=== PATIENT | female | born 1950 | race Caucasian/White ===

== ENCOUNTER → 2018-01-23 | Outpatient (CLI) | payer OTHER ==
[~2018-01-23] MED LIST: LISI-461 PO; PRAV20TA PO
[2018-01-23 14:00] LABS: BASO % 0.3 %; BASO ABS # 0.02 K/uL (0-0.2); EOS % 0.3 %; EOS ABS # 0.02 K/uL (0-0.5); HEMATOCRIT 40.3 % (37-47); HEMOGLOBIN 13.3 g/dL (12.0-16.0); IG# 0.01 K/uL (0.00-0.02); LYMPH % 25.9 %; LYMPH ABS # 1.74 K/uL (1.2-3.4); MEAN CELL VOLUME 89.6 fL (80-100); MEAN CORPUSCULAR HEMOGLOBIN 29.6 pg (25-34); MEAN PLATELET VOLUME 10.1 fL (7.4-10.4); MONO % 6.7 %; MONO ABS # 0.45 K/uL (0.11-0.59); NEUT % 66.7 %; NEUT ABS # 4.49 K/uL (1.4-6.5); PLATELET COUNT 202 K/uL (130-400); RED CELL DISTRIBUTION WIDTH CV 14.5 % (11.5-14.5); RED CELL DISTRIBUTION WIDTH SD 47.6 fL (36.4-46.3); WHITE BLOOD COUNT 6.73 K/uL (4.8-10.8)
--- NOTE | 2018-01-23 14:05 | DIAGNOSTIC IMAGING REPORT ---
CHEST 2 VIEWS ROUTINE CLINICAL HISTORY: 67 years-old Female presenting with preoperative assessment prior to total hip arthroplasty. TECHNIQUE: PA and lateral views of the chest were obtained. COMPARISON: None. FINDINGS: Cardiomediastinal silhouette normal. Lungs and pleural spaces clear. Degenerative changes of the thoracic spine. Cholecystectomy clips noted. IMPRESSION: 1. No acute cardiopulmonary disease. Electronically signed by: Holland Murray M.D. 01/23/2018 2:04 PM Dictated Date/Time: 01/23/2018 2:03 PM
[2018-01-23 14:14] LABS: HEMOGLOBIN A1C 5.7 % (4.5-5.6)
[2018-01-23 15:30] LABS: ALBUMIN 3.9 gm/dl (3.4-5.0); BLOOD UREA NITROGEN 17 mg/dl (7-18); CALCIUM 9.6 mg/dl (8.5-10.1); CARBON DIOXIDE 28 mmol/L (21-32); CREATININE 1.01 mg/dl (0.60-1.20); GLUCOSE 100 mg/dl (70-99); POTASSIUM 4.4 mmol/L (3.5-5.1); SODIUM 139 mmol/L (136-145)
== END | disposition home or self-care (01) ==
LOC: C.CPL 13:01
PROVIDERS: ATTEND Orthopaedic Surgery
DX: Z01.818 Encounter for other preprocedural examination (principal)

== ENCOUNTER 2018-10-18 12:24 | Observation (INO) ==
[2018-10-18] MEDS ORDERED: SODIUM CHLORIDE 0.9% 1000ML 1,000 ML IV ONE (13:03)
[2018-10-18 13:59] LABS: Basophils # (auto) 0.02 K/uL (0-0.2); Basophils % (auto) 0.2 %; Hematocrit (blood only) 40.2 % (37-47); Hemoglobin 13.3 g/dL (12.0-16.0); Immature Granulocytes # (auto) 0.02 K/uL (0.00-0.02); Immature Granulocytes % (auto) 0.2 %; Lymphocytes % (auto) 11.3 %; Mean Corpuscular Hgb Conc 33.1 g/dL (32-36); Mean Corpuscular Volume 88.9 fL (80-100); Mean Platelet Volume 10.1 fL (7.4-10.4); Monocytes # (auto) 0.52 K/uL (0.11-0.59); Monocytes % (auto) 5.3 %; Platelet Count 228 K/uL (130-400); RDW Coefficient of Variation 14.5 % (11.5-14.5); RDW Standard Deviation 47.3 fL (36.4-46.3); Red Blood Count 4.52 M/uL (4.2-5.4); White Blood Count 9.76 K/uL (4.8-10.8)
[2018-10-18 14:10] LABS: Albumin Level 3.5 gm/dl (3.4-5.0); BUN Creatinine Ratio 16.6 (10-20); Calcium 9.1 mg/dl (8.5-10.1); Creatinine Clr Calc Pharmacy 58.9 ml/min; Est GFR (African American) 61.5; Est GFR (Non-African American) 53.1; Potassium 3.8 mmol/L (3.5-5.1)
[2018-10-18 14:21] LABS: Albumin Globulin Ratio 1.1 (0.9-2); Bilirubin,Total 0.8 mg/dl (0.2-1); Globulin 3.2 gm/dl (2.5-4.0); Total Protein 6.7 gm/dl (6.4-8.2); Troponin I 0.028 ng/ml (0-0.045)
[2018-10-18 14:33] LABS: Appearance Urine Cloudy (Clear); Bacteria Urine Automated 2+ (Negative); Color Urine Dark Yellow; Epithelial Cell Urine Auto >30 /lpf (0-5); Glucose Urine UA Negative (Negative); Ketones Urine 2+ (Negative); Leukocyte Esterase Urine 1+ (Negative); Nitrite Urine Negative (Negative); Protein Urine 2+ (Negative); Specific Gravity Urine 1.027 (1.000-1.030); Urobilinogen Urine Negative (Negative)
[2018-10-18 14:41] LABS: Bilirubin Urine Negative (Negative); Ictotest Urine Negative (Negative)
[2018-10-18] MEDS ORDERED: cephALEXin 250 MG CAP PO ONE (15:00)
[2018-10-18] MEDS ORDERED: cephALEXin 500MG HOME PACK PO ONE (15:00)
[2018-10-18 15:04] LABS: Prothrombin Time 10.6 Seconds (9.0-12.0)
--- NOTE | 2018-10-18 15:10 | XRay Report ---
SINGLE VIEW CHEST CLINICAL HISTORY: Dizziness. FINDINGS: An AP, portable, upright chest radiograph is compared to study dated 01/23/2018. The examina tion is degraded by portable technique, apical lordotic positioning, and patient rotation. The cardi omediastinal silhouette is unremarkable. There is chronic elevation of the right hemidiaphragm with b ibasilar atelectasis. No airspace consolidation or large pleural effusion is identified. No pneumotho rax is seen. The skeletal structures are osteopenic. The bony thorax is grossly intact. Calcific tend inopathy is noted in the left shoulder. IMPRESSION: No active disease in the chest. Electronically signed by: William Davila M.D. 10/18/2018 3:09 PM
--- NOTE | 2018-10-18 15:30 | Emergency Department Note ---
Entered by Nieves Dowell acting as a scribe for History of Present Illness General Chief complaint: Syncope Time Seen by Provider: 10/18/18 12:42 Source: patient and family Mode of arrival: EMS Limitations: no limitations History of Present Illness Provider complaint: syncope Onset (ago): hour(s) ([employer]) Location: head Pain Consistency: + other (episode) Quality: + other (post-op) Associated symptoms: + denies other symptoms (palpitations, blurry or double vision), + nausea/vomiting and + other (hot, dizzy); no chest pain, no headaches and no seizure The patient is a 68 year old female who presents to the ER via EMS following an episode of syncope that occurred prior to arrival. The patient reports that earlier today she had an episode of dizziness and states she started seeing spots and felt warm and lightheaded. She notes that she then asked her daughter for a glass of water which she reports did alleviate her symptoms. She states that she then went to a doctors appointment and had a second episode, but that this time she did lose consciousness. The daughter notes that the episode lasted one minute and denies any seizure-like activities. She reports that the patient was given apple juice after the episode which she then vomited. She denies eating this morning. She states that she did recently have a left hip replacement and notes that she had a similar episode last February, following a right hip replacement. She denies any headaches, chest pain or palpitations but reports she did feel hot during these episodes. She states that she did not drink as much water as she normally does today and notes she did not eat breakfast. She denies any new or changes in medications. She also denies any blurry or double vision. Denies any history of heart problems, palpitations. No recent illness or fevers. Denies any change in bowel or bladder function. No preceding headaches or chest pain and no preceding palpitations prior to syncopal events. Home Medications Home Medications Medication Instructions Recorded Confirmed Type lisinopril 10 mg PO QAM #0 tab 01/16/18 10/18/18 History pravastatin 10 mg PO HS #0 tab 01/16/18 10/18/18 History cephalexin 500 mg PO BID 5 Days #10 cap 10/18/18 Rx Allergies Allergy/AdvReac Type Severity Reaction Status Date / Time nitrofurantoin Allergy Mild Gastrointestinal Verified 10/18/18 13:17 Upset Sulfa (Sulfonamide Allergy Mild Rash Verified 10/18/18 13:17 Antibiotics) Past Med/Surg History Medical History Hyperlipemia Hypertension Obesity Osteoarthritis Renal cyst Stage 2 chronic kidney disease Surgical History History of bilateral tubal ligation History of total hip arthroplasty RT Hx laparoscopic cholecystectomy Family History Father Family history of diabetes mellitus Social History Preferred Language: Yoruba Communication Ability: Effective 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 and A total of 10 systems reviewed and were otherwise negative Physical Exam Vital Signs Vital Signs - 24 hr 10/18/18 16:39 10/18/18 18:34 10/18/18 19:45 Temperature Temperature Source Pulse Rate Pulse Rate [Apical] 67 64 60 Pulse Rate [Finger] Respiratory Rate 18 18 18 Respiratory Effort / Characteristics Respiratory Depth Respiratory Pattern Blood Pressure [Right Arm] 155/81 H 150/73 H 145/75 H Blood Pressure Mean [Right Arm] 105 98 98 Blood Pressure Position [Right Arm] Pulse Oximetry 96 97 97 Oxygen Delivery Method Room Air Room Air Room Air 10/18/18 20:00 10/18/18 23:31 10/19/18 02:54 Temperature 36.9 C 36.8 C 36.7 C Temperature Source Oral Oral Oral Pulse Rate Pulse Rate [Apical] 58 L Pulse Rate [Finger] 60 59 L Respiratory Rate 20 18 19 Respiratory Effort / Characteristics Non-Labored Respiratory Depth Normal Respiratory Pattern Regular Blood Pressure [Right Arm] 164/85 H 152/69 H 154/73 H Blood Pressure Mean [Right Arm] 111 96 100 Blood Pressure Position [Right Arm] Lying Lying Pulse Oximetry 96 98 95 Oxygen Delivery Method Room Air Room Air Room Air 10/19/18 07:28 10/19/18 08:00 10/19/18 11:23 Temperature 36.8 C 37 C Temperature Source Oral Oral Pulse Rate 53 L Pulse Rate [Apical] Pulse Rate [Finger] 61 81 Respiratory Rate 16 20 Respiratory Effort / Characteristics Respiratory Depth Respiratory Pattern Blood Pressure [Right Arm] 145/78 H 131/82 Blood Pressure Mean [Right Arm] 100 98 Blood Pressure Position [Right Arm] Sitting Lying Pulse Oximetry 98 94 Oxygen Delivery Method Room Air Room Air 10/19/18 14:52 Temperature Temperature Source Pulse Rate 59 L Pulse Rate [Apical] Pulse Rate [Finger] Respiratory Rate Respiratory Effort / Characteristics Respiratory Depth Respiratory Pattern Blood Pressure [Right Arm] Blood Pressure Mean [Right Arm] Blood Pressure Position [Right Arm] Pulse Oximetry Oxygen Delivery Method GENERAL: alert, well appearing, well nourished, no distress, non-toxic EYE EXAM: normal conjunctiva, PERRL and EOM's grossly intact OROPHARYNX: no exudate, no erythema, lips, buccal mucosa, and tongue normal and mucous membranes are moist NECK: supple, no nuchal rigidity, no adenopathy, non-tender LUNGS: Clear to auscultation. Normal chest wall mechanics HEART: no murmurs, S1 normal and S2 normal ABDOMEN: abdomen soft, non-tender, normo-active bowel sounds, no masses, no re bound or guarding. BACK: Back is symmetrical on inspection and there is no deformity, no midline tenderness, no CVA tenderness. SKIN: no rashes and no bruising UPPER EXTREMITIES: upper extremities are grossly normal. FROM, nml pulses b/l. LOWER EXTREMITIES: No pitting edema. FROM, nml pulses b/l. NEURO EXAM: Normal sensorium, cranial nerves II-XII grossly intact, normal speech, no gross weakness of arms, no gross weakness of legs. Course 1256: Past medical records reviewed. The patient was evaluated in room C2B. A complete history and physical examination was performed. 1426: The patient is feeling better. She was able to walk to the bathroom with no recurrent symptoms. 1445: Bedside discussion regarding urinary tract infection. Patient states she has previously had them and notes her allergies include to antibiotics. No prior cultures and review of EMR to compare to. 1620: Patient updated on repeat troponin which is now elevated. Patient agreement with plan for additional inpatient evaluation and management. Administered Medications Aspirin (Ecotrin Ectab) 81 mg PO QAM [facility] Stop: 11/18/18 08:59 Last Admin: 10/19/18 07:46 Dose: 81 mg Documented by: [id number] Atorvastatin Calcium (Lipitor) 20 mg PO [facility] Stop: 11/17/18 20:16 Last Admin: 10/19/18 07:46 Dose: 20 mg Documented by: [id number] Admin: 10/18/18 20:53 Dose: 20 mg Documented by: [id number] Potassium Chloride/Sodium Chloride (Normal Saline W/20 Meq Kcl) 20 meq in 1,000 mls @ 80 mls/hr IV .[id number] [facility] Stop: 10/19/18 21:44 Last Admin: 10/19/18 07:45 Dose: 80 mls/hr Documented by: [id number] Infusion: 10/19/18 07:45 Dose: 80 mls/hr Documented by: [id number] Admin: 10/18/18 20:30 Dose: 80 mls/hr Documented by: [id number] Lisinopril (Zestril) 10 mg PO [facility] Stop: 11/18/18 08:59 Last Admin: 10/19/18 07:46 Dose: 10 mg Documented by: [id number] Discontinued Medications Aspirin (Ecotrin) 325 mg PO NOW STA Stop: 10/18/18 16:25 Last Admin: 10/18/18 16:38 Dose: Not Given Documented by: [id number] Aspirin (Aspirin) Confirm Administered Dose 324 mg .ROUTE .STK-MED ONE Stop: 10/18/18 16:29 Last Admin: 10/18/18 16:31 Dose: Not Given Documented by: [id number] Aspirin (Aspirin) 324 mg PO NOW STA Stop: 10/18/18 16:29 Last Admin: 10/18/18 16:30 Dose: 324 mg Documented by: [id number] Cephalexin HCl (Keflex 500mg Homepack) 1 homepack PO NOW ONE Stop: 10/18/18 15:01 Last Admin: 10/18/18 16:38 Dose: Not Given Documented by: [id number] Cephalexin HCl (Keflex) 500 mg PO NOW ONE Stop: 10/18/18 15:01 Last Admin: 10/18/18 16:30 Dose: 500 mg Documented by: [id number] Sodium Chloride (Nss 1000ml) 1,000 mls @ 999 mls/hr IV .Q1H1M ONE Stop: 10/18/18 14:03 Last Infusion: 10/18/18 14:23 Dose: 0 mls/hr Documented by: [id number] Admin: 10/18/18 13:30 Dose: 999 mls/hr Documented by: [id number] Medical Decision Making Differential Diagnosis Differential diagnosis includes: vasovagal event, infection, hypoglycemia, electrolyte abnormalities, cardiac sources, intracerebral event, toxicologic, neurologic, as well as others were entertained. Medical Records Attestation: I reviewed the patient's medical records. Home Medications Current Medication List: was personally reviewed by wv Laboratory Data Attestation: I reviewed the patient's lab results. Result diagrams: 10/18/18 13:32 10/18/18 13:32 Lab Results 10/18/18 10/18/18 10/18/18 Range/Units 13:32 13:32 13:35 WBC 9.76 (4.8-10.8) K/uL RBC 4.52 (4.2-5.4) M/uL Hgb 13.3 (12.0-16.0) g/dL Hct 40.2 (37-47) % MCV 88.9 (80-100) fL MCH 29.4 (25-34) pg MCHC 33.1 (32-36) g/dL RDW Std Deviation 47.3 H (36.4-46.3) fL RDW Coeff of Tal 14.5 (11.5-14.5) % Plt Count 228 (130-400) K/uL MPV 10.1 (7.4-10.4) fL Immature Gran % (Auto) 0.2 % Neut % (Auto) 83.0 % Lymph % (Auto) 11.3 % [place] % (Auto) 5.3 % Eos % (Auto) 0.0 % Baso % (Auto) 0.2 % Immature Gran # (Auto) 0.02 (0.00-0.02) K/uL Neut # (Auto) 8.10 H (1.4-6.5) K/uL Lymph # (Auto) 1.10 L (1.2-3.4) K/uL Greenlee # (Auto) 0.52 (0.11-0.59) K/uL Eos # (Auto) 0.00 (0-0.5) K/uL Baso # (Auto) 0.02 (0-0.2) K/uL PT 10.6 (9.0-12.0) Seconds INR 1.0 (0.9-1.1) Sodium 140 (136-145) mmol/L Potassium 3.8 (3.5-5.1) mmol/L Chloride 108 H (98-107) mmol/L Carbon Dioxide 26 (21-32) mmol/L Anion Gap 6.0 (3-11) BUN 18 (7-18) mg/dl Creatinine 1.08 (0.6-1.2) mg/dl Est Cr Clr Drug Dosing 58.9 ml/min Est GFR ( Amer) 61.5 Est GFR (Non-Af Amer) 53.1 BUN/Creatinine Ratio 16.6 (10-20) Glucose 142 H (70-99) mg/dl Calcium 9.1 (8.5-10.1) mg/dl Magnesium 2.0 (1.8-2.4) mg/dl Total Bilirubin 0.8 (0.2-1) mg/dl AST 12 L (15-37) U/L ALT 14 (12-78) U/L Alkaline Phosphatase 82 (45-117) U/L Troponin I 0.028 (0-0.045) ng/ml NT-Pro-B Natriuret Pep 194 (0-900) pg/ml Total Protein 6.7 (6.4-8.2) gm/dl Albumin 3.5 (3.4-5.0) gm/dl Globulin 3.2 (2.5-4.0) gm/dl Albumin/Globulin Ratio 1.1 (0.9-2) Lipase 95 (73-393) U/L TSH 2.590 (0.300-4.500) uIu/ml Urine Color Urine Appearance (Clear) Urine pH (4.5-7.5) Ur Specific [place] (1.000-1.030) Urine Protein (Negative) Urine Glucose (UA) (Negative) Urine Ketones (Negative) Urine Blood (Negative) Urine Nitrite (Negative) Urine Bilirubin (Negative) Urine Urobilinogen (Negative) Ur Leukocyte Esterase (Negative) Urine WBC (Auto) (0-5) /hpf Urine RBC (Auto) (0-4) /hpf U Hyaline Cast (Auto) (0-5) /lpf U Epithel Cells (Auto) (0-5) /lpf Urine Bacteria (Auto) (Negative) Blood Type Antibody Screen 10/18/18 10/18/18 10/18/18 Range/Units 14:15 15:21 15:21 WBC (4.8-10.8) K/uL RBC (4.2-5.4) M/uL Hgb (12.0-16.0) g/dL Hct (37-47) % MCV (80-100) fL MCH (25-34) pg MCHC (32-36) g/dL RDW Std Deviation (36.4-46.3) fL RDW Coeff of Tal (11.5-14.5) % Plt Count (130-400) K/uL MPV (7.4-10.4) fL Immature Gran % (Auto) % Neut % (Auto) % Lymph % (Auto) % [place] % (Auto) % Eos % (Auto) % Baso % (Auto) % Immature Gran # (Auto) (0.00-0.02) K/uL Neut # (Auto) (1.4-6.5) K/uL Lymph # (Auto) (1.2-3.4) K/uL [place]lee # (Auto) (0.11-0.59) K/uL Eos # (Auto) (0-0.5) K/uL Baso # (Auto) (0-0.2) K/uL PT (9.0-12.0) Seconds INR (0.9-1.1) Sodium (136-145) mmol/L Potassium (3.5-5.1) mmol/L Chloride (98-107) mmol/L Carbon Dioxide (21-32) mmol/L Anion Gap (3-11) BUN (7-18) mg/dl Creatinine (0.6-1.2) mg/dl Est Cr Clr Drug Dosing ml/min Est GFR ( Amer) Est GFR (Non-Af Amer) BUN/Creatinine Ratio (10-20) Glucose (70-99) mg/dl Calcium (8.5-10.1) mg/dl Magnesium (1.8-2.4) mg/dl Total Bilirubin (0.2-1) mg/dl AST (15-37) U/L ALT (12-78) U/L Alkaline Phosphatase (45-117) U/L Troponin I 0.059 H* (0-0.045) ng/ml NT-Pro-B Natriuret Pep (0-900) pg/ml Total Protein (6.4-8.2) gm/dl Albumin (3.4-5.0) gm/dl Globulin (2.5-4.0) gm/dl Albumin/Globulin Ratio (0.9-2) Lipase (73-393) U/L TSH (0.300-4.500) uIu/ml Urine Color Dark Yellow Urine Appearance Cloudy A (Clear) Urine pH 5.0 (4.5-7.5) Ur Specific [place] 1.027 (1.000-1.030) Urine Protein 2+ H (Negative) Urine Glucose (UA) Negative (Negative) Urine Ketones 2+ H (Negative) Urine Blood Negative (Negative) Urine Nitrite Negative (Negative) Urine Bilirubin Negative (Negative) Urine Urobilinogen Negative (Negative) Ur Leukocyte Esterase 1+ H (Negative) Urine WBC (Auto) 10-30 H (0-5) /hpf Urine RBC (Auto) 5-10 H (0-4) /hpf U Hyaline Cast (Auto) 10-30 H (0-5) /lpf U Epithel Cells (Auto) >30 H (0-5) /lpf Urine Bacteria (Auto) 2+ H (Negative) Blood Type AB Positive Antibody Screen NEGATIVE 10/18/18 10/19/18 Range/Units 22:55 05:45 WBC (4.8-10.8) K/uL RBC (4.2-5.4) M/uL Hgb (12.0-16.0) g/dL Hct (37-47) % MCV (80-100) fL MCH (25-34) pg MCHC (32-36) g/dL RDW Std Deviation (36.4-46.3) fL RDW Coeff of Tal (11.5-14.5) % Plt Count (130-400) K/uL MPV (7.4-10.4) fL Immature Gran % (Auto) % Neut % (Auto) % Lymph % (Auto) % [place] % (Auto) % Eos % (Auto) % Baso % (Auto) % Immature Gran # (Auto) (0.00-0.02) K/uL Neut # (Auto) (1.4-6.5) K/uL Lymph # (Auto) (1.2-3.4) K/uL [place] # (Auto) (0.11-0.59) K/uL Eos # (Auto) (0-0.5) K/uL Baso # (Auto) (0-0.2) K/uL PT (9.0-12.0) Seconds INR (0.9-1.1) Sodium (136-145) mmol/L Potassium (3.5-5.1) mmol/L Chloride (98-107) mmol/L Carbon Dioxide (21-32) mmol/L Anion Gap (3-11) BUN (7-18) mg/dl Creatinine (0.6-1.2) mg/dl Est Cr Clr Drug Dosing ml/min Est GFR ( Amer) Est GFR (Non-Af Amer) BUN/Creatinine Ratio (10-20) Glucose (70-99) mg/dl Calcium (8.5-10.1) mg/dl Magnesium (1.8-2.4) mg/dl Total Bilirubin (0.2-1) mg/dl AST (15-37) U/L ALT (12-78) U/L Alkaline Phosphatase (45-117) U/L Troponin I 0.106 H* 0.103 H* (0-0.045) ng/ml NT-Pro-B Natriuret Pep (0-900) pg/ml Total Protein (6.4-8.2) gm/dl Albumin (3.4-5.0) gm/dl Globulin (2.5-4.0) gm/dl Albumin/Globulin Ratio (0.9-2) Lipase (73-393) U/L TSH (0.300-4.500) uIu/ml Urine Color Urine Appearance (Clear) Urine pH (4.5-7.5) Ur Specific [place] (1.000-1.030) Urine Protein (Negative) Urine Glucose (UA) (Negative) Urine Ketones (Negative) Urine Blood (Negative) Urine Nitrite (Negative) Urine Bilirubin (Negative) Urine Urobilinogen (Negative) Ur Leukocyte Esterase (Negative) Urine WBC (Auto) (0-5) /hpf Urine RBC (Auto) (0-4) /hpf U Hyaline Cast (Auto) (0-5) /lpf U Epithel Cells (Auto) (0-5) /lpf Urine Bacteria (Auto) (Negative) Blood Type Antibody Screen Imaging Data Radiologist's Impression: Radiology results as stated below per my review and th e radiologist's interpretation: SINGLE VIEW CHEST CLINICAL HISTORY: Dizziness. FINDINGS: An AP, portable, upright chest radiograph is compared to study dated 01/23/2018. The examination is degraded by portable technique, apical lordotic positioning, and patient rotation. The cardiomediastinal silhouette is unremarkable. There is chronic elevation of the right hemidiaphragm with bibasilar atelectasis. No airspace consolidation or large pleural effusion is identified. No pneumothorax is seen. The skeletal structures are osteopenic. The bony thorax is grossly intact. Calcific tendinopathy is noted in the left shoulder. IMPRESSION: No active disease in the chest. Electronically signed by: William Davila M.D. 10/18/2018 3:09 PM ECG Data Attestation: I personally reviewed and interpreted this ECG as follows: Indication: syncope Rate (beats per minute): 58 Rhythm: sinus bradycardia Findings: + other (normal axis, normal intervals); no acute ischemic change and no ectopy Blood Pressure Blood Pressure Findings: Normal blood pressure Blood Pressure Disposition: did not require urgent referral MDM Narrative Heart score 4 Patient well-appearing here in initial description more consistent with orthostatic hypotension and subsequent syncope. Patient improved by arrival. Patient was hydrated labs checked as a precaution given patient's age and comorbid conditions. Patient tolerating p.o. here and remarked that she felt improved. Patient described not having anything to eat or drink this morning, a s she had not had any food because she was headed for preop blood work, but also forgot to drink any fluids. Patient and related to the bathroom without any difficulty. Patient low risk Wells, and I do not suspect PE. I did discuss with patient recheck of a secondary troponin due to her moderate risk heart score. Second troponin found to be elevated. Patient had no recurrent symptoms while here and was hemodynamically stable. I do not suspect bacteremia/sepsis or pyelonephritis. UA suboptimal, however given age and abnormal urinalysis, I did discuss with her treatment for UTI which she has had previously. No evidence of concurrent renal dysfunction. I do not suspect occult vascular etiology. Case discussed with hospitalist for additional inpatient evaluation and treatment. Impression & Plan Syncope, Dehydration, Orthostatic dizziness, Acute UTI Discharge Plan Visit Data *Final* Discharge Date/Time: 10/18/18 19:44 Chief Complaint: Syncope ED Provider: Mireille Housotn Discharge Problem: Syncope, Dehydration, Orthostatic dizziness, Acute UTI Patient Disposition: Home - Self-Care Condition: Good Discharge Instructions Interventions: ED Discharge Assessment Last Done: 10/18/18 19:44 Discharge Problem: Syncope Qualifiers: Syncope type: unspecified Qualified Code(s): R55 - Syncope and collapse The scribe's documentation has been prepared under my direction and personally reviewed by me in its entirety. I confirm that the note above accurately reflects all work, treatment, procedures, and medical decision making performed by me.
[2018-10-18] MEDS ORDERED: ASPIRIN 325 MG ECTAB PO STA (16:24)
[2018-10-18] MEDS ORDERED: ASPIRIN CHEW 324 MG ONE (16:28)
[2018-10-18] MEDS ORDERED: ASPIRIN CHEW 324 MG PO STA (16:28)
--- NOTE | 2018-10-18 17:47 | History & Physical Report ---
Date of Service October 18, 2018 Assessment & Plan (1) Syncope: 68 y/o F Hx HTN, HLD, CKD II, osteoarthritis. She was at her orthopedist for a pre-op eval for a planned L hip replacement. While in the office, she had 3 separate episodes of syncope or near-syncope. She claimed she could hear what was going on but was not responsive. These lasted 1-2 min. She was directed to the ER therefore. She did not have any CP, SOB, N/V or diaphoresis. Initial labs in the ER were notable for an elevated troponin. Her EKG did not support acute ischemia. 1) 3 syncopal episodes with a troponin elevation - an arrhythmia could tie in the diagnosis. We will treat for an NSTEMI with ASA, a statin and full-dose anticoagulation. She is scheduled for an echo and cardiology evaluation. She will remain on monitor overnight. 2) HTN - cont Lisinopril 3) HLD - statin dose increased 4) CKD - creat at baseline Full code - Lovenox prophylaxis Total time for this admit including review of labs, meds, imaging, records - discussion with pt and ER attending - 37 min Present on Admission?: Yes History of Present Illness Chief Complaint: Syncope and trop elevation Primary Care Provider: BUTCH JENNINGS 68 y/o F Hx HTN, HLD, CKD II, osteoarthritis. She was at her orthopedist for a pre-op eval for a planned L hip replacement. While in the office, she had 3 separate episodes of syncope or near-syncope. She claimed she could hear what was going on but was not responsive. These lasted 1-2 min. She was directed to the ER therefore. She did not have any CP, SOB, N/V or diaphoresis. Intial labs in the ER were notable for an elevated troponin. Her EKG did not support acute ischemia. PMH: 1) HTN 2) HLD 3) CKD II 4) Renal cyst 5) Osteoarthritis 6) Obese Surgical: 1) Right total hip 02/2018 Social: No history of smoking or drinking Family: Father - DM, ESRD Mother - breast CA, cirrhosis Allergies Allergy/AdvReac Type Severity Reaction Status Date / Time nitrofurantoin Allergy Mild Gastrointestinal Verified 10/18/18 13:17 Upset Sulfa (Sulfonamide Allergy Mild Rash Verified 10/18/18 13:17 Antibiotics) Home Medications Home Medications Medication Instructions Recorded Confirmed Type lisinopril 10 mg PO QAM #0 tab 01/16/18 10/18/18 History pravastatin 10 mg PO HS #0 tab 01/16/18 10/18/18 History cephalexin 500 mg PO BID 5 Days #10 cap 10/18/18 Rx Past Med/Surg History Medical History Hyperlipemia Hypertension Obesity Osteoarthritis Renal cyst Stage 2 chronic kidney disease Surgical History History of bilateral tubal ligation History of total hip arthroplasty RT Hx laparoscopic cholecystectomy Family History Father Family history of diabetes mellitus Social History Preferred Language: Occitan Communication Ability: Effective Beliefs That Will Affect Care: None Current Living Situation: Alone Feels Safe at Home: Yes Smoking Status: Former smoker Second Hand Exposure: No Hx Alcohol Use: No Hx Substance Use: No Review of Systems Review of Systems: Gen: Denies fevers, night sweats, rigors, fatigue, malaise, weight loss/gain ENT: Denies congestion, throat pain, hearing loss Eyes: Denies acute visual changes CV: Denies CP, palpitations Pulmonary: Denies SOB, cough, wheezing GI: Denies N/V, diarrhea, constipation Neuro: 3 episodes of syncope or near syncope as per HPI Musculoskeletal: Denies joint pain, inflammation Endocrine: Denies polydipsia, polyuria Skin: Denies acute rashes or ulcers Physical Exam Physical Exam: General: Pleasant, elderly F, AAO x 3, no distress ENT: No erythema or exudates, no thrush Eyes: GEOFFREY, EOMI Head and neck: Normocephalic, atraumatic, No JVD, neck is supple. Chest/heart: Nontender, S1,2, RRR, no murmurs, no gallops Lungs: CTAB, no wheezing or crackles Abdomen: Nontender, nondistended, BS+ Neuro: AAO x 3, speech is clear, no unilateral weakness or loss of sensation, coordination intact Musculoskeletal: No joint inflammation, muscle tenderness, FROM Skin: No acute rashes or ulcers Extremities: No clubbing, cyanosis, edema Results & Data Vital Signs (Past 12 Hours) Vital Signs Temp Pulse Pulse Resp BP BP Pulse Ox 10/18/18 16:39 67 18 155/81 H 96 10/18/18 15:00 69 18 149/86 H 99 10/18/18 14:15 65 15 157/63 H 97 10/18/18 14:10 82 15 10/18/18 14:00 59 L 16 96 10/18/18 13:50 61 19 97 10/18/18 13:40 61 13 98 10/18/18 13:30 71 17 97 10/18/18 13:20 60 15 96 10/18/18 13:10 61 12 94 10/18/18 13:00 62 18 92 10/18/18 12:50 63 19 10/18/18 12:40 59 L 15 10/18/18 12:36 62 26 H 10/18/18 12:35 98.1 F 61 18 115/57 L 94 10/18/18 12:31 61 20 115/57 L Diagnostic Findings EKG: sinus bradycardia CXR: clear (1) Syncope Syncope type: unspecified Qualified Code(s): R55 - Syncope and collapse
[2018-10-18] MEDS ORDERED: NITROGLYCERIN SL 0.4 MG/TAB TAB SL PRN (20:17)
[2018-10-18] MEDS ORDERED: ACETAMINOPHEN 325 MG TAB PO PRN (20:17)
[2018-10-18] MEDS ORDERED: ZOLPIDEM TARTRATE 5 MG TAB PO PRN (20:17)
[2018-10-18] MEDS ORDERED: MAGNESIUM HYDROXIDE SUSP 30 ML UDC PO PRN (20:17)
[2018-10-18] MEDS ORDERED: ALUMINUM/MAGNESIUM SUSP 30 ML UDC PO PRN (20:17)
[2018-10-18] MEDS ORDERED: POLYETHYLENE (MIRALAX) 17 GM PACK PO PRN (20:17)
[2018-10-18] MEDS ORDERED: ONDANSETRON INJ 2 MG/ML 2 ML VIAL IV PRN (20:17)
[2018-10-18] MEDS: NSS + 20MEQ KCL 20 MEQ/1,000 ML BAG IV SCH (20:30)
[2018-10-18] MEDS: ATORVASTATIN 20 MG TAB PO SCH (20:53)
[2018-10-19] MEDS: NSS + 20MEQ KCL 20 MEQ/1,000 ML BAG IV SCH (07:45)
[2018-10-19] MEDS: LISINOPRIL 10 MG TAB PO SCH (07:46)
[2018-10-19] MEDS: ATORVASTATIN 20 MG TAB PO SCH (07:46)
[2018-10-19] MEDS: ASPIRIN 81 MG ECTAB PO SCH (07:46)
--- NOTE | 2018-10-19 15:07 | Hospitalist Progress Note ---
Date of Service October 19, 2018 Assessment & Plan (1) Syncope: 68 y/o F Hx HTN, HLD, CKD II, osteoarthritis admitted yesterday on October 18, 2018 because of near syncope pt was was at her orthopedist for a pre-op eval for a planned L hip replacement. While in the office, she had 3 separate episodes of syncope or near-syncope. deneis any CP, SOB, N/V or diaphoresis. 3 syncopal episodes with a troponin elevation need to rule out an arrhythmia treat for an NSTEMI with ASA, a statin and full-dose anticoagulation. ordered echo and cardiology consult, follow final results Possible UTI, patient is asymptomatic, will follow-up results HTN: cont Lisinopril HLD: statin dose increased CKD: creat at baseline Full code - Lovenox prophylaxis Discussed with patient and daughter in bedside about condition and Answered All Questions Subjective Doing well, no new syncope, denies chest pain, Review of Systems Review of Systems: General Appearance: WD/WN, no apparent distress, Eyes: normal inspection, PERRL, EOMI, sclerae normal ENT: normal ENT inspection, hearing grossly normal, pharynx normal Neck: supple, no adenopathy, thyroid normal, no JVD, no carotid bruits, trachea midline Respiratory/Chest: chest non-tender, normal breath sounds, no respiratory distress, Cardiovascular: regular rate, rhythm, no JVD, no murmur Abdomen: normal bowel sounds, non tender, soft, no organomegaly, Extremities: normal range of motion, non-tender, normal inspection, no pedal edema, no calf tenderness, joint has no limited range of motion, capillary refill is normal, no cyanosis clubbing Neurologic/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 Chest/heart: Nontender, S1,2, RRR, no murmurs, no gallops Lungs: CTABil, no wheezing or crackles Abdomen: Nontender, nondistended, BS+ Neuro: AAO x 3, speech is clear, no unilateral weakness or loss of sensation, coordination intact Musculoskeletal: No joint inflammation, muscle tenderness, FROM Skin: No acute rashes or ulcers Extremities: No clubbing, cyanosis, edema Results & Data Vital Signs (Past 12 Hours) Vital Signs Temp Pulse Pulse Resp BP Pulse Ox 10/19/18 14:52 59 L 10/19/18 11:23 37 C 81 20 131/82 94 10/19/18 08:00 53 L 10/19/18 07:28 36.8 C 61 16 145/78 H 98 Laboratory Results - last 24 hr 10/18/18 10/18/18 10/18/18 15:21 15:21 22:55 Troponin I 0.059 H* 0.106 H* Blood Type AB Positive Antibody Screen NEGATIVE 10/19/18 05:45 Troponin I 0.103 H* Blood Type Antibody Screen Microbiology 10/18/18 14:15 Urine,Straight Cath Urine Culture - Preliminary Pin-point growth present, reincubating. (1) Syncope Syncope type: unspecified Qualified Code(s): R55 - Syncope and collapse
[2018-10-19] MEDS ORDERED: DOBUTamine HCL 12.5 MG/ML 20 ML VIAL IV ONE (16:25)
[2018-10-19] MEDS ORDERED: ATROPINE SULFATE 0.1 MG/ML 10ML SYR IV ONE (16:25)
[2018-10-19] MEDS ORDERED: METOPROLOL TARTRATE 1 MG/ML VIAL IV ONE (16:25)
--- NOTE | 2018-10-19 16:35 | Cardiology Consultation ---
Date of Consultation October 19, 2018 Assessment & Plan (1) Syncope: 2. Elevated troponin 3. Hypertension 4. Dyslipidemia 5. Sinus bradycardia Patient admitted after 3 episodes of syncope without precipitating chest pain, palpitations or shortness of breath. Brief prodromal symptoms of feeling warm, nauseated. EKG on presentation unremarkable but found to have mild troponin rise to 0.106. Echo with structurally normal heart and telemetry has been unremarkable except for sinus bradycardia to the 40s while sleeping. At this point suspect symptoms secondary to some mix of dehydration with decreased p.o. intake versus vasovagal. From a cardiac standpoint arrhythmia remains on the differential. Symptoms did occur with exertion and feel further ischemic work-up indicated. Would represent a low risk ACS presentation and will proceed with stress test for risk stratification. We will obtain dobutamine stress echocardiogram today. If study negative could discontinue heparin infusion and discharge home later today/tomorrow Would recommend additional ambulatory monitoring as an outpatient Would add aspirin to patient's outpatient regimen and follow-up with PCP for further modifiable ASCVD risk factor reduction. History of Present Illness Attending Physician: Baldo Beaulieu MD, PhD, [facility] History of Present Illness Mrs. Poe is a very pleasant 68-year-old woman with a history of hypertension, dyslipidemia mild chronic renal insufficiency and osteoarthritis admitted in the setting of syncope. Patient was in her usual state of health yesterday and was undergoing an x-ray for planned hip replacement when while walking back to the x-ray room felt hot and started to see spots. Was able to make it to a chair where reportedly lost consciousness a total of 3 times. Patient denies any precipitating chest pain, palpitations, shortness of breath. Denies any recent illness. States did not drink much in the morning prior to episode due to prolonged travel to get here. She reports one episode of syncope 9 months ago which occurred soon after hip replacement surgery of her other hip. At baseline functional capacity limited due to joint pain but with walking around her home denies any exertional symptoms. No prior cardiac history. Has never had a stress test. In the ED was feeling back to baseline. Blood pressure stable. On telemetry bradycardic overnight while sleeping to the low 40s. No other significant arrhythmia. EKG sinus rhythm with no ST abnormalities or abnormal intervals. Initial troponin negative and subsequently trended up to a peak of 0.106 yesterday evening. Family history: Father had bypass surgeries in his late 60s/early 70s Social history: No prior tobacco use. No alcohol use. . Allergies Allergy/AdvReac Type Severity Reaction Status Date / Time nitrofurantoin Allergy Mild Gastrointestinal Verified 10/18/18 13:17 Upset Sulfa (Sulfonamide Allergy Mild Rash Verified 10/18/18 13:17 Antibiotics) Home Medications Home Medications Medication Instructions Recorded Confirmed Type lisinopril 10 mg PO QAM #0 tab 01/16/18 10/18/18 History pravastatin 10 mg PO HS #0 tab 01/16/18 10/18/18 History cephalexin 500 mg PO BID 5 Days #10 cap 10/18/18 Rx Patient History Medical History Hyperlipemia Hypertension Obesity Osteoarthritis Renal cyst Stage 2 chronic kidney disease Surgical History History of bilateral tubal ligation History of total hip arthroplasty RT Hx laparoscopic cholecystectomy Family History Father Family history of diabetes mellitus Social History Preferred Language: Arabic Communication Ability: Effective 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 Beliefs That Will Affect Care: None Current Living Situation: Alone Other Information That Helps Us Care for You: No Feels Safe at Home: Yes Safety Concerns: Feels Safe At This Time Smoking Status: Never smoker Do You Dip or Chew Tobacco: No Second Hand Exposure: No Tobacco Cessation Education Requested by Patient: No Hx Alcohol Use: No Hx Substance Use: No Review of Systems Review of Systems: All systems reviewed & are unremarkable except as noted in HPI & below Physical Exam Physical Exam: General: Comfortable, no acute distress, obese Eyes: Sclerae anicteric, extraocular movements intact HENT: Oropharynx clear mucous membranes moist Neck: Normal carotid upstrokes, no bruits. No JVD. Lungs: Clear to auscultation bilaterally, no rhonchi or wheezes Cardiac: Regular rate and rhythm, no murmurs, rubs or gallops. Vascular: 2+ radial, DP and PT pulses. No varicosities. Abdomen: Soft, nontender, nondistended, positive bowel sounds. Extremities: Well perfused, no peripheral edema Skin: No rashes or lesions. Neuro: Nonfocal Psych: Alert orient x3, normal affect and mood Results & Data Vital Signs (Past 12 Hours) Vital Signs Temp Pulse Pulse Resp BP Pulse Ox 10/19/18 15:28 36.9 C 63 18 158/82 H 98 10/19/18 14:52 59 L 10/19/18 11:23 37 C 81 20 131/82 94 10/19/18 08:00 53 L 10/19/18 07:28 36.8 C 61 16 145/78 H 98 (1) Syncope Syncope type: unspecified Qualified Code(s): R55 - Syncope and collapse
[2018-10-20] MEDS ORDERED: dilTIAZem HCl 5 MG/ML 5 ML VIAL IV STA ×2 (02:16→03:03)
--- NOTE | 2018-10-20 02:26 | Progress Note ---
Date of Service October 20, 2018 Assessment & Plan (1) Afib: New onset afib, rate 115-120. No chest pain, no SOB, pressures WNL. 1. Cardizem 25 mg. If does not convert, will try a second dose at 35 mg. If we are unsuccessful after two attempts, will have to start a cardizem drip 2. Reviewed TSH, electrolytes--unremarkable. Will reorder BMP Results & Data Vital Signs (Past 12 Hours) Vital Signs Temp Pulse Pulse Resp BP BP BP 10/20/18 01:48 123 H 10/20/18 00:00 55 L 10/19/18 23:54 36.5 C 56 L 18 131/75 10/19/18 19:18 36.7 C 60 18 128/87 10/19/18 17:15 133 H 150/82 H 10/19/18 15:28 36.9 C 63 18 158/82 H 10/19/18 14:52 59 L Pulse Ox 10/20/18 01:48 10/20/18 00:00 10/19/18 23:54 98 10/19/18 19:18 99 10/19/18 17:15 10/19/18 15:28 98 10/19/18 14:52
[2018-10-20 03:18] LABS: BUN Creatinine Ratio 16.5 (10-20); Calcium 9.2 mg/dl (8.5-10.1); Creatinine Clr Calc Pharmacy 59.7 ml/min; Est GFR (African American) 62.2; Est GFR (Non-African American) 53.7; Potassium 3.9 mmol/L (3.5-5.1)
[2018-10-20] MEDS ORDERED: dilTIAZem HCl 5 MG/ML 5 ML VIAL IV ONE (05:12)
[2018-10-20] MEDS ORDERED: METOPROLOL TARTRATE 1 MG/ML VIAL IV STA (05:21)
[2018-10-20] MEDS ORDERED: METOPROLOL TARTRATE 1 MG/ML VIAL IV ONE (05:24)
[2018-10-20 06:46] LABS: BUN Creatinine Ratio 16.4 (10-20); Calcium 9.3 mg/dl (8.5-10.1); Creatinine Clr Calc Pharmacy 64.7 ml/min; Est GFR (African American) 66.7; Est GFR (Non-African American) 57.6; Magnesium 2.1 mg/dl (1.8-2.4); Potassium 4.3 mmol/L (3.5-5.1)
[2018-10-20] MEDS: ASPIRIN 81 MG ECTAB PO SCH (07:52)
[2018-10-20] MEDS: ATORVASTATIN 20 MG TAB PO SCH (07:52)
[2018-10-20] MEDS: LISINOPRIL 10 MG TAB PO SCH (07:52)
[2018-10-20] MEDS ORDERED: APIXABAN 5 MG TABLET PO SCH (14:00)
--- NOTE | 2018-10-20 16:33 | Cardiology Progress Note ---
Date of Service October 20, 2018 Assessment & Plan (1) Syncope: 2. Elevated troponin 3. Hypertension 4. Dyslipidemia 5. Sinus bradycardia 6. Atrial fibrillation with RVR Ischemic work-up unremarkable yesterday. Overnight new asymptomatic A. fib with RVR. Back in sinus rhythm today. Feel atrial fibrillation likely an incidental finding rather than cause of patient's syncope. Ventricular rate not terribly fast and tolerated well without symptoms. Concern for high risk cardiac condition causing syncope is low and feel can be discharged today. With new atrial fibrillation elevated cardio thromboembolic risk and discussed risk, benefits of anticoagulation going forward. Patient and daughter in agreement with starting Eliquis. Follow-up with me in 1 to 2 weeks. Consider additional ambulatory monitoring to assess A. fib burden and consider addition of low-dose AV [place] agent at that time. From a cardiac standpoint do not see any contraindication to planned surgery in November. Subjective Overnight had 4+ hours of new atrial fibrillation with heart rates up into the 110s. Received IV metoprolol, IV diltiazem. Converted back to sinus rhythm approximately 6 this morning. Patient asymptomatic with atrial fibrillation. This morning patient feeling well. Denies any chest pain, palpitations any presyncopal symptoms. Up walking in room. Review of Systems Review of Systems: All systems reviewed & are unremarkable except as noted in HPI & below Physical Exam Constitutional: WD/WN, vitals as above Eyes: PERRL, conjunctivae normal, anicteric sclerae Cardiovascular: RRR, no murmur, no edema Vessels: no JVD Extremities: normal capillary refill; no edema Gastrointestinal (Abdomen): normal bowel sounds, soft, nontender, no hepatosplenomegaly Skin: no rashes, warm and dry Neurologic: no focal motor deficits Psychiatric: A+Ox3, euthymic affect Results & Data Vital Signs (Past 12 Hours) Vital Signs Temp Pulse Pulse Pulse Resp BP BP 10/20/18 14:29 36.9 C 91 H 61 18 130/69 10/20/18 14:26 36.9 C 91 H 61 18 130/69 10/20/18 11:45 36.9 C 61 18 130/69 10/20/18 08:26 53 L 10/20/18 07:31 36.6 C 52 L 18 122/75 10/20/18 05:38 91 H 108/82 10/20/18 05:28 108 H 138/62 BP Pulse Ox 10/20/18 14:29 128/87 97 10/20/18 14:26 128/87 97 10/20/18 11:45 97 10/20/18 08:26 10/20/18 07:31 93 10/20/18 05:38 10/20/18 05:28 (1) Syncope Syncope type: unspecified Qualified Code(s): R55 - Syncope and collapse
--- NOTE | 2018-10-24 19:47 | Discharge Summary ---
Date of Service October 24, 2018 Admission HPI Per Admitting Provider 68 y/o F Hx HTN, HLD, CKD II, osteoarthritis. She was at her orthopedist for a pre-op eval for a planned L hip replacement. While in the office, she had 3 separate episodes of syncope or near-syncope. She claimed she could hear what was going on but was not responsive. These lasted 1-2 min. She was directed to the ER therefore. She did not have any CP, SOB, N/V or diaphoresis. Intial labs in the ER were notable for an elevated troponin. Her EKG did not support acute ischemia. PMH: 1) HTN 2) HLD 3) CKD II 4) Renal cyst 5) Osteoarthritis 6) Obese Surgical: 1) Right total hip 02/2018 Social: No history of smoking or drinking Family: Father - DM, ESRD Mother - breast CA, cirrhosis Principal Diagnosis syncope , likely from afib Discharge Exam General Appearance: WD/WN, no apparent distress, Eyes: normal inspection, PERRL, EOMI, sclerae normal ENT: normal ENT inspection, hearing grossly normal, pharynx normal Neck: supple, no adenopathy, thyroid normal, no JVD, no carotid bruits, trachea midline Respiratory/Chest: chest non-tender, normal breath sounds, no respiratory dist ress, Cardiovascular: regular rate, rhythm, no JVD, no murmur Abdomen: normal bowel sounds, non tender, soft, no organomegaly, Extremities: normal range of motion, non-tender, normal inspection, no pedal edema, no calf tenderness, joint has no limited range of motion, capillary refill is normal, no cyanosis clubbing Neurologic/Psychiatric: vehicle 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 II-XII nml as tested, no motor/sensory deficits, alert, normal mood/affect, oriented x 3 Skin: normal color, warm/dry, no rash Lymphatic: no adenopathy Discharge Data Allergies Allergy/AdvReac Type Severity Reaction Status Date / Time nitrofurantoin Allergy Mild Gastrointestinal Verified 10/18/18 13:17 Upset Sulfa (Sulfonamide Allergy Mild Rash Verified 10/18/18 13:17 Antibiotics) Consultations 10/18/18 16:24 ED Decision to Admit Stat 10/18/18 20:17 Consult Cardiology Routine Hospital Course (1) Syncope: 68 y/o F Hx HTN, HLD, CKD II, osteoarthritis admitted yesterday on October 18, 2018 because of near syncope pt was was at her orthopedist for a pre-op eval for a planned L hip replacement. While in the office, she had 3 separate episodes of syncope or near-syncope. deneis any CP, SOB, N/V or diaphoresis. 3 syncopal episodes with a troponin elevation need to rule out an arrhythmia treat for an NSTEMI with ASA, a statin and full-dose anticoagulation. ordered echo and cardiology consult, follow final results Possible UTI, patient is asymptomatic, will follow-up results HLD: statin dose increased CKD: creat at baseline Full code - Lovenox prophylaxis Discussed with patient and daughter in bedside about condition and Answered All Questions On october 20, [address] Dave , feel pt can be discharged with the instructions in below, you was having separate episodes of syncope or near-syncope. now we found you have Afib, we stared Eliqus 5mg oral twice daily for stroke prevention we are not giving to you any medicine to slow the heart rate because your heart rate sometimes was lower than 60 already, please to be see by Dr. Tenzin keith you do not need to take antibiotic because you have no urinary tract infection you need to follow up with pcp pt discharged at stable condition. Total Time Total Time Spent Total Time Spent (In Minutes): 35 Discharge Plan Discharge Items Patient Disposition: Home - Self-Care Reason For Visit: SYNCOPE AND ELEVATED TROPONIN Discharge Diagnosis: near syncope, Afib Condition: Good Discharge Goals: Decrease discomfort, Diagnostic testing and Improve disease control Activity: Resume your previous activity Non-emergency contact: Primary Care Provider and Picker Tender Helper Call non-emergency contact if: you have any medication questions Follow-up/Referrals: Clinton Garcia MD [Primary Care Provider] - Diet: Heart Healthy Add Provider Instructions: you was having separate episodes of syncope or near-syncope. now we found you have Afib, we stared Eliqus 5mg oral twice daily for stroke prevention we are not giving to you any medicine to slow the heart rate because your heart rate sometimes was lower than 60 already, please to be see by Dr. Tenzin keith you do not need to take antibiotic because you have no urinary tract infection you need to follow up with pcp you need to follow up with your primary care physician in 1 week, - take medication as instructed, never overdose or any misuse, or take with alcohol, because misuse of medicine may cause organ damage or , call me, or your primary care physician if have questions of discharge medicaitons. - call your primary care physician, or go to local emergency room if has any fever/chill, chest pain, shortness of breathing, nausea/vomiting/abdominal pain, facial droop/slurry speech/local weakness, or if has any questions. - fall precaution - diet as instructed - you need to follow up with your subspecialist, such as Dr. Dave in[place] - no drive before cleared by PCP Prescriptions: New Eliquis 5 mg Tablet 5 mg PO BID 30 Days Qty: 60 RF: 0 Continued pravastatin 10 mg Tablet 10 mg PO HS Qty: 0 RF: 0 lisinopril 10 mg Tablet 10 mg PO QAM Qty: 0 RF: 0 Stand-Alone Forms: [employer] [facility] Issuu/Other Patient Handouts: Pravastatin Sodium Oral tablet, Apixaban Oral tablet, AFL/Afib, Syncope, Stroke Prevent Live W Atrial Fib Discharge Orders: Discharge Order (Routine); Ordered 10/20/18 Ordered By: Baldo Beaulieu Admission Data Admit Date/Time: 10/18/18 17:52 Attending Provider: Baldo Beaulieu Admit Provider: Tarun Kong Primary Care Provider: Clinton Garcia Other Providers: Tarun Kong ; Elio Malhotra Service: Telemetry Other Interventions: Discharge Summary Assessment (RN) Last Done: 10/20/18 14:29 DC Date/Time DO NOT enter until pt leaves facility: 10/20/18 15:00
== END 2018-10-20 15:00 | disposition home or self-care (01) ==
LOC: ED 12:24 → 2S 12:24 → SUATTDRO 17:52 → 2S 19:44

== ENCOUNTER 2018-12-06 07:01 | Inpatient (IN) ==
--- NOTE | 2018-10-17 16:04 | PAT Medication Instructions ---
Medication Instructions Date of Service October 17, 2018 Home Medications Medication Instructions Recorded apixaban [Eliquis] 5 mg PO BID 30 Days #60 tab 10/20/18 lisinopril 10 mg PO QAM pravastatin 10 mg PO HS DO NOT take the morning of surgery lisinopril 10 mg PO QAM Take morning of surgery NOTHING TO EAT OR DRINK AFTER MIDNIGHT: Take evening before surgery pravastatin 10 mg PO HS Other Notes If you have any questions please call us at [phone] or [phone] or [phone] or [phone]
--- NOTE | 2018-11-26 11:32 | Anesthesiology Consultation ---
Date of Service November 26, 2018 Assessment & Plan (1) Encounter for pre-operative examination: Chart Review Chart Review: Acceptable Risk for Surgery and Patient NOT seen in Pre Admission Testing Consults Requested none Internal Medicine preop 10/29/2018. Medically stable for hip replacement pending cardiology evaluation for a fib and holter monitor. Cardiology evaluated patient 11/13/2018. Patient without further episodes of syncope or near syncope. Ischemia workup was negative. Event potentially secondary to orthostasis. Unlikely that her A fib was contributory. Holter monitor shows adequate HR control. Continue anticoagulation for stroke risk reduction. Patient is a low cardiac risk to proceed with hip replacement surgery. She can hold Eliquis for 48 hours prior to surgery. I CALLED DR. MOORE'S OFFICE AND LEFT A MESSAGE WITH HIS NURSE THAT WE WOULD REQUIRE HER BEING OFF OF ELIQUIS FOR 72 HOURS FOR A SPINAL BLOCK FOR HIP SURGERY. History Surgery Operation Date: 12/06/18 13:55 Proposed Procedures p Left Total Hip Arthroplasty Posterior Approach - Zach Brar, Height/Weight Height: 5 ft 6 in Weight: 103.419 kg Allergies Allergy/AdvReac Type Severity Reaction Status Date / Time nitrofurantoin Allergy Mild Gastrointestinal Verified 10/18/18 13:17 Upset Sulfa (Sulfonamide Allergy Mild Rash Verified 10/18/18 13:17 Antibiotics) Medications Home Medications Medication Instructions Recorded Confirmed Last Taken lisinopril 10 mg PO QAM #0 tab 01/16/18 10/18/18 10/18/18 pravastatin 10 mg PO HS #0 tab 01/16/18 10/18/18 10/17/18 Past Medical History Medical History Afib Diagnosed during hospital admission October 2018. Started on beta rena and Eliquis and upon outpatient internal medicine f/u had no further syncope episodes. Syncope (Acute) Patient was in orthopedic office for evaluation for L hip replacement and had several episodes of near syncope and was sent to the ER on 10/18/2018. Initial labs in ER notable for elevated troponin but EKG did not support acute ischemia. Patient found to be in A fib. Admitted to the hospital and discharged 10/20/2018. Hyperlipemia Hypertension Obesity Osteoarthritis Renal cyst Stage 2 chronic kidney disease Past Surgical History Surgical History History of bilateral tubal ligation History of total hip arthroplasty RT. 02/[address] Brar. SAB. Sedation. no issues. Hx laparoscopic cholecystectomy Social History Smoking Status: Never smoker Do You Dip or Chew Tobacco: No Hx Alcohol Use: No Hx Substance Use: No substance use type: does not use Testing Laboratory Results Laboratory Tests 10/18/18 10/20/18 13:32 05:54 WBC 9.76 Hgb 13.3 Hct 40.2 Plt Count 228 Sodium 143 Potassium 4.3 Chloride 110 H Carbon Dioxide 29 BUN 17 Creatinine 1.01 Glucose 84 Electrocardiogram EKG on 20-oct-2018 showed A fib with RVR and nonspecific T wave abnormalities. HR 112. *Above EKG happened overnight when patient was admitted. When cardiology saw her the next day, patient had converted back to NSR* Chest X-Ray Date: 10/18/18 FINDINGS: An AP, portable, upright chest radiograph is compared to study dated 01/23/2018. The examination is degraded by portable technique, apical lordotic positioning, and patient rotation. The cardiomediastinal silhouette is unremarkable. There is chronic elevation of the right hemidiaphragm with bibasilar atelectasis. No airspace consolidation or large pleural effusion is identified. No pneumothorax is seen. The skeletal structures are osteopenic. The bony thorax is grossly intact. Calcific tendinopathy is noted in the left shoulder. IMPRESSION: No active disease in the chest. Echocardiogram Dobutamine stress echo 10/19/2018. Normal baseline EKG Stress EKG: NO ST changes, no arrhythmias. Negative dobutamine stress echo for ischemia at 95% MPHR Negative dobutamine stress ECG for ischemia. Normal resting biV size and function. EF 60-65%. No valvular disease.
--- NOTE | 2018-12-05 22:22 | History & Physical Report ---
Date of Service December 05, 2018 Assessment & Plan (1) Degenerative joint disease of left hip: I have indicated the patient for left total hip replacement. The risks, benefits and complications of surgery were explained to the patient which include but not limited to infection, acute blood loss, DVT/PE, injury to nerves, vessels, bone, soft tissue, arthrofibrosis, chronic pain, failure of the prosthesis, hip dislocation, leg length discrepancy, need for additional surgery, cardiac and pulmonary events and . The patient wished to proceed with surgery and informed consent was obtained at this time. We will plan for Eliquis post-operatively for DVT prophylaxis. Upon discharge the patient will be discharged home with home health services. Appropriate clearances by PCP, cardiology were obtained. Patient denies UTI symptoms. History of Present Illness Chief Complaint: Left hip pain/djd Primary Care Provider: Clinton Garcia MD The patient is a 68 year old female who presents with complaints of severe left hip pain and DJD. The patient has failed outpatient conservative treatments to this point which included NSAIDs, corticosteroid injection, home exercise, walking program, PT. The patient's pain and limited function have progressed to the point where they severely hinder their activities of daily living and they n o longer tolerate exercise programs. They are requesting to proceed with total hip replacement surgery. Allergies Allergy/AdvReac Type Severity Reaction Status Date / Time nitrofurantoin Allergy Mild Gastrointestinal Verified 12/06/18 07:50 Upset Sulfa (Sulfonamide Allergy Mild Rash Verified 12/06/18 07:50 Antibiotics) Home Medications Home Medications Medication Instructions Recorded Confirmed Type lisinopril 10 mg PO QAM #0 tab 01/16/18 12/06/18 History pravastatin 10 mg PO HS #0 tab 01/16/18 12/06/18 History apixaban [Eliquis] 5 mg PO BID 11/26/18 12/06/18 History metoprolol succinate 25 mg PO QPM 11/26/18 12/06/18 History Past Med/Surg History Medical History Afib Diagnosed during hospital admission October 2018. Started on beta rena and Eliquis and upon outpatient internal medicine f/u had no further syncope episodes. Syncope (Acute) Patient was in orthopedic office for evaluation for L hip replacement and had several episodes of near syncope and was sent to the ER on 10/18/2018. Initial labs in ER notable for elevated troponin but EKG did not support acute ischemia. Patient found to be in A fib. Admitted to the hospital and discharged 10/20/2018. Hyperlipemia Hypertension Obesity Osteoarthritis Renal cyst Stage 2 chronic kidney disease Surgical History History of bilateral tubal ligation History of total hip arthroplasty RT. 02/[address] Brar. SAB. Sedation. no issues. Hx laparoscopic cholecystectomy Family History Father Family history of diabetes mellitus Social History Preferred Language: Yi Communication Ability: Effective Corrosion Technician Required: No Beliefs That Will Affect Care: None Current Living Situation: Alone Other Information That Helps Us Care for You: No Feels Safe at Home: Yes Safety Concerns: Feels Safe At This Time Smoking Status: Never smoker Do You Dip or Chew Tobacco: No Second Hand Exposure: No Tobacco Cessation Education Requested by Patient: No Hx Alcohol Use: No Hx Substance Use: No Review of Systems Review of Systems: All systems reviewed & are unremarkable except as noted in HPI & below Constitutional: as per Subjective / HPI Physical Exam Physical Exam: LLE NVSI +EHL/FHL/TA/GS SILT grossly, +2 DP pulse, compartments soft NT, limited painful ROM, antalgic gait Constitutional: WD/WN, vitals as above Eyes: PERRL, conjunctivae normal, anicteric sclerae ENMT: external ear and nose normal, oropharynx normal Neck: trachea midline, no thyromegaly Respiratory: normal respiratory effort, lungs clear to auscultation Cardiovascular: RRR, no murmur, no edema Gastrointestinal (Abdomen): normal bowel sounds, soft, nontender, no hepatosplenomegaly Musculoskeletal: no cyanosis or clubbing, extremities motor strength 5/5 Skin: no rashes, warm and dry Neurologic: patellar DTR's 2+ bilat, sensation intact Psychiatric: A+Ox3, euthymic affect Lymphatic: no cervical or axillary lymphadenopathy Results & Data Diagnostic Findings Multiple views of the hip demonstrates severe DJD with complete loss of the joint space. +osteophytes, +sclerosis, +subchondral cysts.
[~2018-12-06 07:01] MED LIST changes: +ACETAMINOPHEN 500 MG TAB PO SCH; +BUPIVACAINE 0.5 % 5 MG/1 ML PF 10ML VIAL ONE; +CEFAZOLIN 2000MG 2,000 MG/15 ML SYR IV SCH; +CLINDAMYCIN 600 MG/54 ML BAG IV SCH; +CeleBREX 200 MG CAP PO SCH; +FAMOTIDINE 20 MG TAB PO SCH; -LISI-461 PO; +LR 500ML BOLUS, THEN 15ML/HR IV SCH; +METOCLOPRAMIDE HCL 10 MG TABLET PO SCH; +MIDAZOLAM HCL 1 MG/ML 2ML VIAL ONE; -PRAV20TA PO; +PROPOFOL IV EMULSION 10 MG/ML 20 ML VIAL IV ONE; +ROPIVACAINE 0.5% HCL/PF 150 MG, BUPIVACAINE 0.5% MPF 30 ML, EPINEPHrine 30MG/30ML (OR U... INFIL SCH; +TRANEXAMIC ACID 1,000 MG **IV Intra-op IV SCH; +TRANEXAMIC ACID 1,000 MG **IV Pre-op IV SCH; +dexAMETHasone 4 MG TAB PO SCH; +fentaNYL citrate 100 MCG/2 ML VIAL ONE
[2018-12-06] MEDS ORDERED: BACITRACIN INJ 50,000 UNIT VIAL ONE (07:06)
[2018-12-06] MEDS ORDERED: ORTHO JOINT ANESTHETIC ONE ×2 (07:06→08:25)
--- OUTSIDE RECORDS SUMMARY | 2018-12-06 07:06 | External Medical Summary | Continuity of Care Document ---
:1950 Author Name Silvia Carnes, Provider Address Unavailable Unavailable , Care Team Providers Name Role Phone Unavailable Unavailable Unavailable Tenzin Carnes, [email or web address] Problems Atrial fibrillation (427.31) (I48.91) Syncope (780.2) (R55) Stage 2 chronic kidney disease (585.2) (N18.2) Renal cyst (753.10) (N28.1) Osteoarthritis (715.90) (M19.90) Obesity (278.00) (E66.9) Sinus bradycardia (427.89) (R00.1) Dyslipidemia (272.4) (E78.5) Hypertension (401.9) (I10) Elevated troponin (790.6) (R74.8) Allergies and Adverse Reactions Nitrofurantoin CAPS (Allergy) Reaction: Gatrointestinal upset Sulfa Antibiotics (Allergy) Reaction: Rash Medications Metoprolol Succinate ER 25 MG Oral Table t Extended Release 24 Hour; TAKE 1 TABLET DAILY. Trice Dave Start: 25-Oct-2018 Quantity: 30 Refills: 3 Pravastatin Sodium 10 MG Oral Tablet; ta ke 1 tablet by mouth once daily at bedtime , M.D. Refills: 0 Lisinopril 10 MG Oral Tablet; take 1 tablet by mouth julius barber M.D. 15 Tablet Bottle Refills: 0 Eliquis 5 MG Oral Tablet; Take 1 tablet twice daily , M.D. Start: 25-Oct-2018 Refills: 0 Procedures History of tubal ligation bilateral Stat us: Completed History of hip replacement Status: Compl eted History of Cholecystectomy Laparoscopic Status: Completed Immunizations Immunizations not documented Family History Unknown Family Member Family history of diabetes mellitus (V18.0) Status: Active Comments: Family History (Z83.3) Plan of Treatment Planned Observations Planned Goals not documented Results No Known Results Results not documented Vital Signs 13-Nov-2018 11:29 Systolic 164 mm[Hg] Comments: Location: LUE; Position: Sitting Diastolic 72 mm[Hg] Comments: Location: LUE; Position: Sitting BMI Calculated 37.68 kg/m2 Weight 240.5625 lb Heart Rate 60 /min Comments: Location: L Radial; BSA Calculated 2.19 m2 Encounters Appointment; Carrie Ruiz PA-C 13-Nov-2018 11:30 Encounter Diagnosis: Problem not documented Appointment; [facility] 09-Nov-2018 9:30 Encounter Diagnosis: Problem not documented Appointment; [facility], Nursing Station 08-Nov-2018 9:30 Encounter Diagnosis: Problem not documented Appointment; aPpi Dave M.D. 25-Oct-2018 9:00 Encounter Diagnosis: Problem not documented
[2018-12-06] MEDS ORDERED: ATROPINE SULFATE 0.1 MG/ML 10ML SYR IV PRN (08:57)
[2018-12-06] MEDS ORDERED: fentaNYL citrate 100 MCG/2 ML VIAL IV PRN (08:57)
[2018-12-06] MEDS ORDERED: PROMETHAZINE HCL 6.25 MG in SODIUM CHLORIDE 0.9% 50 ML IV PRN (08:57)
[2018-12-06] MEDS ORDERED: ePHEDrine sulfate 50 MG/ML AMP IV PRN (08:57)
[2018-12-06] MEDS ORDERED: ONDANSETRON INJ 2 MG/ML 2 ML VIAL IV PRN ×2 (08:57→12:03)
--- NOTE | 2018-12-06 09:02 | History & Physical Bridge Note ---
Date of Service December 06, 2018 History & Physical Bridge Note I have examined the patient, reviewed the History & Physical and in the interval since the performance of the History & Physical I have noted the following changes of clinical significance: no changes noted
[2018-12-06] MEDS ORDERED: MIDAZOLAM HCL 1 MG/ML 2ML VIAL ONE (09:50)
[2018-12-06] MEDS ORDERED: PROPOFOL IV EMULSION 10 MG/ML 20 ML VIAL IV ONE ×2 (10:30)
--- NOTE | 2018-12-06 10:49 | Post Operative Brief Note ---
Immediate Post Op Note v1 Date of Surgery December 06, 2018 Pre & Post Diagnosis Operation Date: 12/06/18 09:20 Pre-Op Diagnosis: Unilateral Primary Osteoarthritis, Left Hip Post-Op Diagnosis: Unilateral Primary Osteoarthritis, Left Hip Procedure Operation Date: 12/06/18 09:20 Actual Procedures p Left Total Hip Arthroplasty - Posterior Approach(Left) - Zach Brar DO Surgeon Zach Brar DO Contracting Executive Medardo Almeida Estimated Blood Loss 75 Findings Consistent with Post-Op Diagnosis Fluids 1200 cc LR Specimens femoral head Drains Hemovac Drain Anesthesia Type Spinal MAC Complications none Disposition Disposition: Recovery Room Overlapping Procedure I was present for: the critical portions of procedure. I was immediately available: during the entire case. Back up surgeon: was not required during procedure.
--- NOTE | 2018-12-06 11:17 | Operative Report ---
Post Operative Report Pre & Post Diagnosis Operation Date: 12/06/18 09:20 Pre-Op Diagnosis: Unilateral Primary Osteoarthritis, Left Hip Post-Op Diagnosis: Unilateral Primary Osteoarthritis, Left Hip Procedure Operation Date: 12/06/18 09:20 Actual Procedures p Left Total Hip Arthroplasty - Posterior Approach(Left) - Zach Brar DO Surgeon Zach Brar DO Dragline Mechanic Medardo Almeida Estimated Blood Loss 75 Findings Consistent with Post-Op Diagnosis Fluids 1200 cc LR Specimens Femoral head Anesthesia Type Spinal MAC Complications none Disposition Disposition: Recovery Room Indications The patient is a 68-year-old femur who presents with severe progressive left hip DJD who has failed outpatient conservative treatments. I indicated the patient for a total hip replacement and the risks and benefits were explained in detail which included but not limited to infection, bleeding, blood clot, damage to surrounding bone, nerves, vessels, soft tissue, hip dislocation, failure of the prosthesis, leg length discrepancy, need for additional surgery and . The patient agreed to proceed with replacement of the hip and informed consent was obtained. Appropriate clearances were obtained. Description of Procedure COMPONENTS USED: Lencho [employer] hip system: Acetabulum size 52, femur size 12.5 extended offset, femoral head 36-3 point, liner 5236, acetabular screw 25 mm x 1. Following induction of adequate spinal anesthesia, the patient was transferred to the OR table and placed in lateral decubitus position with right hip down. The left hip was prepped and draped in the typical sterile fashion. A timeout was performed, patient identified and site reina confirmed. Appropriate antibiotics were given. A standard posterolateral/Ian-Langenbeck incision was made. Subcutaneous tissue was sharply dissected. Electrocautery was utilized for hemostasis. The fascia was incised throughout the length of the wound and retracted with the Charnley retractor. The bursa was taken down and the short external rotators were identified. The piriformis was tagged with #1 Vicryl. The short external rotators and capsule were divided from the posterior aspect of the femur using electrocautery. The posterior capsule was tagged with #1 Vicryl. Both external rotators and posterior capsule were swept posterior and protected, along with protecting the sciatic nerve. The hip was dislocated by flexion and internally rotation in a controlled manner and exposure of the femoral neck was gained with an old-style Hohmann and a blunt cobra retractor. A femoral cutting guide was utilized for making the appropriate level femoral neck cut with reciprocating saw. The femoral head was removed, measured and reserved on the back table. Next, attention was turned to the acetabulum. A posterior and anterior offset retractor was placed to gain adequate exposure. Acetabular labrum as well as posterior capsule elements were removed using electrocautery and forceps. Fovea centralis was cleared of all soft tissue. Sequential reaming was performed starting at 44 mm and carried up to a 51 mm and decision was made to proceed with impaction of a 50 to mm trabecular metal cup. This was impacted and held using a single 25 mm bone screw. The trial acetabular liner was placed at this time. Next, attention was turned to the proximal femur where a Bovie and pickup was used to further clear short external rotators from their insertion on the femur. Box osteotome and canal finder was used to gain access to the femoral canal and the lateral reamer on power was used to further open the proximal lateral canal. Sequentially rasping was carried up to a 12.5 which gave good fit and fill of the proximal femur. A trial reduction was carried out with a extended offset femoral neck component a 36 mm femoral head. The trial reduction was stable in all degrees of rotation with no [id number] impingement. The hip was dislocated, trial components were removed and access to the acetabulum was re-established. The trial liner was removed and the cup was irrigated to ensure all debris was removed. The final acetabular liner was inserted and properly seated in the cup. Access to the femur was once more gained and the size 12.5 femoral stem with excellent offset was impacted into position. The hip was once more assessed with the 36-3.5 point mm femoral head. Stability was accessed and found to be excellent with equal leg lengths. The hip was dislocated for the last time and the final 36- 3.5 ceramic femoral head was impacted in place and the hip was reduced. Range of motion was checked once again and found to be stable. A Betadine soak was performed. After 3 minutes, the hip was once more irrigated with copious sterile saline solution with bacitracin. The otf-incisional soft tissue was injected utilizing [place] ortho mix which includes a combination of Ropivicaine 0.5% 150mg, Bupivicaine 0.5%/Epinephrine 1:200,000 30ml, Toradol 30mg, Dexamethasone 4mg, Ketamine 10mg, Clonidine 100mcg and NSS 30ml Orthomix solution. The piriformis, external rotators and capsule were repaired to the greater trochanter through bone tunnels using #5 FiberWire. The fascia was closed using #1 Vicryl, subcutaneous tissue was closed using 2-0 Vicryl, and skin was closed with 3-0 V-lock suture and Dermabond Prineo. Sterile dressings were applied which included juan, 4x4s and tegaderm adhesive dressing. The patient tolerated the procedure well and was transported to PACU in stable condition. Due to the complex nature of the procedure, the entire surgery was performed with the operational assistance of Medardo Almeida PA-C. The respiratory care assistant, under direct supervision, was involved in the actual performance of all aspects of the surgical procedure including patient positioning, hemostasis, tissue retraction, instrument management and wound closure. I attest to the content of the Intraoperative Record and any orders documented therein. Any exceptions are noted below.
--- NOTE | 2018-12-06 11:55 | Anesthesiology Progress Note ---
Date of Service December 06, 2018 Anesthesia Post Procedure Vital Signs Vital Signs: Temp Pulse Pulse Resp BP Pulse Ox 12/06/18 11:45 78 16 123/69 96 12/06/18 11:35 36.4 C L 78 16 142/75 H 96 12/06/18 11:25 82 16 131/59 L 100 12/06/18 11:19 36.3 C L 78 16 143/59 H 100 12/06/18 07:51 36.7 C 62 18 163/64 H 97 Transfer of Care Handoff Completed per policy Notes Mental Status: alert / awake / arousable Patient Amnestic to Procedure: Yes Nausea / Vomiting: adequately controlled Pain: adequately controlled Airway Patency, RR, SpO2: stable & adequate BP & HR: stable & adequate Hydration State: stable & adequate Neuraxial Anesthesia: was administered and sensory block is resolving Anesthetic Complications: no major complications apparent and Pt Satisfied with anesthetic care
--- NOTE | 2018-12-06 11:57 | XRay Report ---
XR hip 1V LT w pelvis CLINICAL HISTORY: Postop hip arthroplasty COMPARISON: 02/13/2018 DISCUSSION: There are postsurgical changes of a total left hip arthroplasty. The femoral and acetabul ar components appear well seated. There is no dislocation. There is air present within the soft tissu es consistent with recent surgery. IMPRESSION: Postsurgical changes of a total left hip arthroplasty. Electronically signed by: Murray Chen M.D. 12/06/2018 11:55 AM
[2018-12-06] MEDS ORDERED: HYDROmorphone INJ 0.5 MG/0.5 ML SYR IV PRN (12:03)
[2018-12-06] MEDS ORDERED: BISACODYL 10 MG SUPP PR PRN (12:03)
[2018-12-06] MEDS ORDERED: MAGNESIUM HYDROXIDE SUSP 30 ML UDC PO PRN (12:03)
[2018-12-06] MEDS ORDERED: METOCLOPRAMIDE HCL INJ 5 MG/ML 2 ML VIAL IV PRN (12:03)
[2018-12-06] MEDS ORDERED: NALOXONE HCL 0.4 MG/1 ML VIAL/CARP IV PRN (12:03)
[2018-12-06] MEDS ORDERED: OXYCODONE HCL IR 5 MG TAB (IMMEDIATE RELEASE) PO PRN (12:03)
[2018-12-06] MEDS: ACETAMINOPHEN 500 MG TAB PO SCH ×2 (14:08→22:09)
[2018-12-06] MEDS: KETOROLAC TROMETHAMINE 15 MG/ML VIAL IV SCH ×2 (14:08→18:52)
--- NOTE | 2018-12-06 15:47 | Orthopedic Progress Note ---
Date of Service December 06, 2018 Assessment & Plan (1) Degenerative joint disease of left hip: Status post left posterior total hip arthroplasty -Ancef x24 -DVT prophylaxis: SCDs, teds, restart patient's home Eliquis postoperative day #1 -Weight-bear as tolerates left lower extremity -Posterior hip precautions -PT/OT -A.m. labs -Postoperative x-ray demonstrates a well aligned well fixed orthopedic prosthesis without evidence of fracture or dislocation. -DC planning Subjective Post Operative Progress Note Patient seen sitting up in bed, comfortable, denies complaints, pain well controlled, no acute issues. Review of Systems Review of Systems: All systems reviewed & are unremarkable except as noted in HPI & below Constitutional: as per Subjective / HPI Physical Exam Physical Exam: LLE NVSI +EHL/FHL/TA/GS SILT grossly, +2 DP pulse, compartments soft NT, dressing cdi. Constitutional: WD/WN, vitals as above Results & Data Vital Signs (Past 12 Hours) Vital Signs Temp Pulse Pulse Resp BP Pulse Ox 12/06/18 15:22 36.5 C 65 17 146/80 H 96 12/06/18 14:04 76 18 168/84 H 93 12/06/18 13:01 72 18 170/70 H 96 12/06/18 12:30 36.4 C L 65 16 153/73 H 96 12/06/18 12:18 36.5 C 77 16 148/65 H 95 12/06/18 11:45 78 16 123/69 96 12/06/18 11:35 36.4 C L 78 16 142/75 H 96 12/06/18 11:25 82 16 131/59 L 100 12/06/18 11:19 36.3 C L 78 16 143/59 H 100 12/06/18 07:51 36.7 C 62 18 163/64 H 97
[2018-12-06] MEDS: CEFAZOLIN 2000MG 2,000 MG/15 ML SYR IV SCH (16:54)
[2018-12-06] MEDS: DOCUSATE SODIUM 100 MG CAP PO SCH (20:52)
[2018-12-06] MEDS ORDERED: SENNA 8.6 MG TAB PO SCH (21:00)
[2018-12-06] MEDS ORDERED: CeleBREX 200 MG CAP PO SCH (21:00)
[2018-12-06] MEDS ORDERED: PRAVASTATIN SOD 10 MG TAB PO SCH (21:00)
[2018-12-06] MEDS ORDERED: METOPROLOL SUCC 25MG EXT REL TAB PO SCH (21:00)
[2018-12-06] MEDS: SODIUM CHLORIDE 0.9% 1000ML 1,000 ML IV SCH (22:11)
[2018-12-06] MEDS ORDERED: Nursing to Pharmacy Communication ONE (22:12)
[2018-12-07] MEDS: CEFAZOLIN 2000MG 2,000 MG/15 ML SYR IV SCH (00:58)
[2018-12-07 06:14] LABS: Basophils # (auto) 0.01 K/uL (0-0.2); Basophils % (auto) 0.1 %; Eosinophils # (auto) 0.01 K/uL (0-0.5); Eosinophils % (auto) 0.1 %; Hematocrit (blood only) 34.7 % (37-47); Hemoglobin 11.4 g/dL (12.0-16.0); Immature Granulocytes # (auto) 0.02 K/uL (0.00-0.02); Immature Granulocytes % (auto) 0.2 %; Mean Corpuscular Hgb Conc 32.9 g/dL (32-36); Mean Corpuscular Volume 88.5 fL (80-100); Monocytes # (auto) 0.87 K/uL (0.11-0.59); Neutrophils # (auto) 8.61 K/uL (1.4-6.5); Neutrophils % (auto) 79.6 %; Platelet Count 196 K/uL (130-400); RDW Coefficient of Variation 13.8 % (11.5-14.5); RDW Standard Deviation 44.9 fL (36.4-46.3); Red Blood Count 3.92 M/uL (4.2-5.4); White Blood Count 10.82 K/uL (4.8-10.8)
[2018-12-07] MEDS: ACETAMINOPHEN 500 MG TAB PO SCH (06:32)
[2018-12-07 06:55] LABS: BUN Creatinine Ratio 20.9 (10-20); Calcium 8.8 mg/dl (8.5-10.1); Creatinine Clr Calc Pharmacy 48.7 ml/min; Est GFR (African American) 45.3; Est GFR (Non-African American) 39.1; Potassium 4.2 mmol/L (3.5-5.1)
[2018-12-07] MEDS: DOCUSATE SODIUM 100 MG CAP PO SCH (08:35)
[2018-12-07] MEDS ORDERED: MULTIVITAMIN TAB PO SCH (09:00)
[2018-12-07] MEDS ORDERED: LISINOPRIL 10 MG TAB PO SCH (09:00)
[2018-12-07] MEDS ORDERED: APIXABAN 5 MG TABLET PO SCH (09:00)
--- NOTE | 2018-12-07 09:16 | Orthopedic Progress Note ---
Date of Service December 07, 2018 Assessment & Plan (1) Degenerative joint disease of left hip: Status post left posterior total hip arthroplasty POD#1 -Ancef x24 -DVT prophylaxis: SCDs, teds, restart patient's home Eliquis postoperative day #1 -Weight-bear as tolerates left lower extremity -Posterior hip precautions -PT/OT -A.m. labs hgb 11.4 -Postoperative x-ray demonstrates a well aligned well fixed orthopedic prosthesis without evidence of fracture or dislocation. -DC planning: home with Subjective Post Operative Progress Note Patient seen sitting up in bed, comfortable, denies complaints, pain well controlled, no acute issues. Review of Systems Review of Systems: All systems reviewed & are unremarkable except as noted in HPI & below Constitutional: as per Subjective / HPI Physical Exam Physical Exam: LLE NVSI +EHL/FHL/TA/GS SILT grossly, +2 DP pulse, compartments soft NT, dressing cdi. Constitutional: WD/WN, vitals as above Results & Data Vital Signs (Past 12 Hours) Vital Signs Temp Pulse Resp BP Pulse Ox 12/07/18 06:56 36.5 C 55 L 20 139/82 100 12/07/18 03:32 36.5 C 57 L 16 151/62 H 96 12/06/18 23:42 36.5 C 60 16 134/71 95
--- NOTE | 2018-12-07 10:41 | Anesthesiology Progress Note ---
Date of Service December 07, 2018 Anesthesia Post Procedure Vital Signs Vital Signs: Temp Pulse Pulse Resp BP BP Pulse Ox 12/07/18 09:45 36.5 C 20 139/82 139/81 100 12/07/18 06:56 36.5 C 55 L 20 139/82 100 12/07/18 03:32 36.5 C 57 L 16 151/62 H 96 12/06/18 23:42 36.5 C 60 16 134/71 95 12/06/18 20:50 64 139/81 12/06/18 19:14 36.6 C 61 17 144/79 H 94 12/06/18 15:22 36.5 C 65 17 146/80 H 96 12/06/18 14:04 76 18 168/84 H 93 12/06/18 13:01 72 18 170/70 H 96 12/06/18 12:30 36.4 C L 65 16 153/73 H 96 12/06/18 12:18 36.5 C 77 16 148/65 H 95 12/06/18 11:45 78 16 123/69 96 12/06/18 11:35 36.4 C L 78 16 142/75 H 96 12/06/18 11:25 82 16 131/59 L 100 12/06/18 11:19 36.3 C L 78 16 143/59 H 100 Pain Intensity Left Hip: Pain Intensity: 0 Notes Mental Status: alert / awake / arousable and participated in evaluation Patient Amnestic to Procedure: Yes Nausea / Vomiting: adequately controlled Pain: adequately controlled Airway Patency, RR, SpO2: stable & adequate BP & HR: stable & adequate Hydration State: stable & adequate Anesthetic Complications: no major complications apparent and Pt Satisfied with anesthetic care
--- NOTE | 2018-12-08 11:26 | Discharge Summary ---
Date of Service December 08, 2018 Admission HPI Per Admitting Provider The patient is a 68 year old female who presents with complaints of severe left hip pain and DJD. The patient has failed outpatient conservative treatments to this point which included NSAIDs, corticosteroid injection, home exercise, walking program, PT. The patient's pain and limited function have progressed to the point where they severely hinder their activities of daily living and they no longer tolerate exercise programs. They are requesting to proceed with total hip replacement surgery. Principal Diagnosis Left total hip replacement Discharge Exam LLE NVSI +EHL/FHL/TA/GS SILT grossly, +2 DP pulse, compartments soft NT, dressing cdi. Constitutional WD/WN, vitals as above Discharge Data Allergies Allergy/AdvReac Type Severity Reaction Status Date / Time nitrofurantoin Allergy Mild Gastrointestinal Verified 12/06/18 07:50 Upset Sulfa (Sulfonamide Allergy Mild Rash Verified 12/06/18 07:50 Antibiotics) Consultations 12/07/18 08:00 Consult Case Management - Discharge Planning Routine Procedures Performed Operation Date: 12/06/18 09:20 Actual Procedures p Left Total Hip Arthroplasty - Posterior Approach(Left) - Zach Brar DO Hospital Course (1) Degenerative joint disease of left hip: The patient is a 68 -year-old female who presents with long standing history of severe left hip DJD and failed outpatient conservative treatments including NSAIDs, bracing, injections and home walking/exercise program. The patient's symptoms have progressed to the point where it has been difficult to perform even normal activities of daily living. I indicated the patient for a left total hip arthroplasty, the risks, benefits and complications of the procedure include but not limited to infection, bleeding, damage to bone, nerves, vessels, surrounding soft tissue, may develop blood clots, loss of function, leg length discrepancy, dislocation, failure of the components, loosening of the components, the need for additional surgery and . The patient wished to proceed with surgery at this time and informed consent was obtained. Hospital Course: On 12/06/18 the patient was taken to the operating room, adequate anesthesia administered and underwent a left total hip arthroplasty. The patient tolerated the procedure well and was taken to the PACU in stable condition. Post- operatively the patient was started on a DVT ppx medication and given appropriate IV antibiotics. Consults were placed to physical therapy, occupational therapy and case management. On POD#1, the patient did well overnight and their pain was well controlled. Labs were drawn and the Hgb was 11.4. The patient progressed well with PT. Dressings were changed at this time and the incision was clean, dry and intact. The patients hospital stay was relatively uneventful and they were deemed stable by the orthopedic team and consultants to be discharged home with HH on 12/07/18. Discharge Instructions: Upon discharge the patient may weight bear as tolerates through their operative extremity. They were instructed to keep the incision clean and dry at all times. The patient may shower but should not submerge the incision, avoid bathing, pools and hot tubes. The patient was given a script for pain medication and should take as instructed. The patient is to continue their home DVT ppx Eliquis and should take as directed. The patient was instructed to not drive or travel for long distances until cleared to do so. If the patient develops any symptoms of fevers, chills, nausea, vomiting, increased redness, swelling, pain or drainage from the surgical site, they should notify the office and/or proceed to the nearest emergency room. The patient should follow up in 10-14 days after surgery for their routine post-operative follow-up appointment and should call the office to confirm the date and time. Status post left posterior total hip arthroplasty POD#1 -Ancef x24 -DVT prophylaxis: SCDs, teds, restart patient's home Eliquis postoperative day #1 -Weight-bear as tolerates left lower extremity -Posterior hip precautions -PT/OT -A.m. labs hgb 11.4 -Postoperative x-ray demonstrates a well aligned well fixed orthopedic pro sthesis without evidence of fracture or dislocation. -DC planning: home with HH Total Time Total Time Spent Total Time Spent (In Minutes): 60 minutes Total Time Includes: Examination of the Patient, Discharge Planning, Medication Reconciliation and Communication With Other Providers Discharge Plan Discharge Items Patient Disposition: Home - Home Health Services Reason For Visit: Unilateral Primary Osteoarthritis, Left Hip Discharge Diagnosis: Left total hip replacement Discharge Goals: Decrease discomfort, Improve disease control, Improve function and Therapeutic intervention Activity: Per 'Additional Instructions' section Lifting: Wait until after follow-up appointment Bathing Comment: No bathing, pools or hot tubs Sexual Activity: Wait until after follow-up appointment Exercise/Sports: Wait until after follow-up appointment Driving/Machine Use Comment: Do not drive till cleared by your surgeon Weightbearing: Left weightbearing Non-emergency contact: Primary Care Provider and Surgeon Call non-emergency contact if: you have any medication questions, your symptoms worsen, your pain is not controlled, your pain is worsening, your pain is unusual for you, your pain is concerning for you, you have a fever, your temperature is above 101, your wound has increased redness, your wound has increased drainage and your wound pain has increased Follow-up/Referrals: Clinton Garcia MD [Primary Care Provider] - Diet: Regular Addtl Provider Instructions: ACTIVITY RECOMMENDATIONS: SELF CARE INSTRUCTIONS AFTER TOTAL HIP REPLACEMENT Until the incision and soft tissues around your hip have healed, there is a possibility that the hip prosthesis could dislocate. A. Observe the following precautions to prevent dislocation: 1. Don't bend your hip greater than 90 degrees. 2. Avoid crossing your legs or ankles while standing or lying. 3. Sit with your feet placed 6 inches apart. 4. When sitting, keep your knees below your hips. Sit on a firm surface, avoid deep, soft chairs and couches. Use an elevated toilet seat in the bathroom. 5. Don't bend over at the waist. Use a long handled shoehorn and a sock aid to help you put on your shoes and socks. A sonar watchstander can help you picker machine operator objects that are too high or too low to reach. 6. Keep car riding to a minimum for at least one month after surgery. B. Your balance may be shaky for a while. Use crutches or a walker until directed by your doctor. C. Use hand rails when walking on stairs. D. Wear low heeled shoes with non-slip soles. E. Be sure that your floors are free of things that could trip you - throw rugs, electrical cords, small objects. Avoid wet and waxed floors, especially with crutches and canes. F. Try to walk several times a day with rest periods between. G. Continue with all the exercises taught to you in the hospital. Again, make walking a part of your daily routine. SPECIAL CARE INSTRUCTIONS: VERY IMPORTANT TO READ AND REVIEW A. You may still be at risk for phlebitis and blood clots. 1. Wear surgical stockings (ALEJO hose) for 2 weeks after surgery to improve circulation and reduce swelling. 2. Take your home medication Eliquis twice daily or as directed by your doctor. This is your blood thinner. 3. High risk patients may be prescribed a stronger blood thinner if necessary. 4. If you are on Coumadin normally, your family doctor/embossing press operator should monitor your blood work. Expect a phone call the day of or the day after bloodwork is drawn to adjust your dosage. B. You must take antibiotics before having dental work, bladder, bowel and other surgery. Your doctor will provide you with a permanent card to carry describing precautions. C. Call [facility] if you have a fever, redness or swelling around the incision, cloudy drainage from incision, or sudden increase in pain in your hip, not relieved by your regular pain medication. D. Please call the office at if you have any concerns or q uestions about your operation or recovery. * YOU MAY SHOWER, NO TUB BATHS UNTIL CLEARED BY YOUR DOCTOR. * WEAR ALEJO HOSE 20 HOURS PER DAY FOR 2 WEEKS. * YOU SHOULD USE A WALKER OR CRUTCHES FOR 2-4 WEEKS. THIS WILL HELP PREVENT STRAIN ON YOUR HIP MUSCLE AND ALLOW IT TO HEAL PROPERLY. YOU MAY WEAN TO A CANE TOLERATED. * MOST PATIENTS WILL HAVE HOME NURSING FOR THERAPY. IF YOU DECIDE TO DO OUTPATIENT PHYSICAL THERAPY, PLEASE SCHEDULE THIS 3 TIMES PER WEEK. *DERMABOND Prineo- This is a mesh tape dressing that is covered with glue. It should remain in place until the incision is properly healed, usually 10-14 days. This dressing is designed to naturally slough off. You may trim the excess mesh tape as it peels off. Incision may be briefly wet in a shower. Dry immediately by blotting with a clean, dry towel. Do not bath or swim until instructed by your doctor. Do not scratch, rub, or pick at the dressing. Do no t apply any topical ointments or lotions until dressing is completely removed and/or instructed by your doctor. There may be a small piece of suture material at one end of your incision. Do not pull or trim this. If it is bothersome or catching on clothing, you may cover it with a band-aid. FOLLOW UP VISIT: If appointment is not already scheduled: Please call [facility] to make a follow-up appointment for 2 weeks after your surgery at . Prescriptions: New acetaminophen [Tylenol Extra Strength] 500 mg Tablet 1,000 mg PO Q8 PRN (Reason: pain) Qty: 90 RF: 0 oxycodone 5 mg Tablet 5 mg PO Q6H MDD 6 tabs PRN (Reason: pain) Qty: 30 RF: 0 sennosides [Senokot] 8.6 mg Tablet 17.2 mg PO HS PRN (Reason: constipation) Qty: 28 RF: 0 Continued pravastatin 10 mg Tablet 10 mg PO HS Qty: 0 RF: 0 lisinopril 10 mg Tablet 10 mg PO QAM Qty: 0 RF: 0 metoprolol succinate 25 mg Tablet Extended Release 24 Hr 25 mg PO QPM RF: 0 Eliquis 5 mg Tablet 5 mg PO BID RF: 0 Stand-Alone Forms: [email or web address] [facility] [employer], [facility] Pain [facility] [employer]/Other Patient Handouts: ED Stockings Alejo Discharge Orders: Discharge Order (Routine); Ordered 12/07/18 Ordered By: Zach Brar Admission Data Admit Date/Time: 12/06/18 11:25 Attending Provider: Zach Brar Admit Provider: Zach Brar Primary Care Provider: Clinton Garcia Service: Surgical Services Other Interventions: Discharge Summary Assessment (RN) Last Done: 12/07/18 09:45 DC Date/Time DO NOT enter until pt leaves facility: 12/07/18 12:30
== END 2018-12-07 12:30 | disposition home health service (06) | DRG 470 ==
LOC: ASU 07:01 → 3E 11:25